=== PATIENT | female | born 1970 | race Caucasian/White ===

== ENCOUNTER 2019-03-06 15:25 | Emergency (ER) | payer BC ==
--- NOTE | 2019-03-06 16:01 | EDM.PDOC ---
ED HPI GENERAL MEDICAL PROBLEM - General Chief Complaint: Gastrointestinal Problem Stated Complaint: LOW ABD AND BACK PAIN Time Seen by Provider: 03/06/19 15:41 Source of Information: Reports: Patient History Limitations: Reports: No Limitations - History of Present Illness INITIAL COMMENTS - FREE TEXT/NARRATIVE: Patient is a 48-year-old female presents ED complaining of periumbilical abdominal pain described as crampy sensation that waxes and wanes in intensity. States been going on for the past month. Of note she has a history of constipation and has been taking this product called Urban Ladder which is a stimulant laxative every 2 days. She's had increased flatulence noted as well. Predominantly symptoms worsen after taking this product. She has been mildly nauseated. There has been no emesis. No dark tarry stools, bloody stools, ingestion of bad/questionable food, recent antibiotic use, or out of country travel. 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 Patient has a history of hypertension and is on lisinopril with HCTZ. She started a probiotic yesterday. She's had her gallbladder removed. She does have a history of endometriosis. She's had no other surgeries other than right knee meniscus repair. She does smoke 1.5 packs per day. Alcohol use seldom. Drug use none. Abdominal Pain Score (Numeric/FACES): 3 - Related Data Allergies Allergy/AdvReac Type Severity Reaction Status Date / Time acetaminophen Allergy Vomiting Verified 03/06/19 15:46 [From Tylenol-Codeine #3] codeine Allergy Vomiting Verified 03/06/19 15:46 [From Tylenol-Codeine #3] morphine Allergy Hives Verified 03/06/19 15:46 Home Meds: Home Meds Lisinopril/Hydrochlorothiazide [Lisinopril-Hctz 20-12.5 mg Tab] 1 tab PO DAILY 03/06/19 [History] Past Medical History Cardiovascular History: Reports: Hypertension Gastrointestinal History: Reports: Cholelithiasis [employer] History: Reports: Endometriosis - Past Surgical History Other Musculoskeletal Surgeries/Procedures:: r knee replacement Social & Family History - Tobacco Use Smoking Status *Q: Current Every Day Smoker Years of Tobacco use: 30 Packs/Tins Daily: 1 - Caffeine Use Caffeine Use: Reports: Coffee, Energy Drinks, Tea - Recreational Drug Use Recreational Drug Use: No ED ROS GENERAL - Review of Systems Review Of Systems: See Below Constitutional: Reports: Decreased Appetite. Denies: Fever, Chills, Malaise, Weakness, Fatigue HEENT: Reports: No Symptoms Respiratory: Reports: No Symptoms Cardiovascular: Reports: No Symptoms GI/Abdominal: Reports: Abdominal Pain, Constipation, Diarrhea, Decreased Appetite, Distension, Flatus, Mucous in Stool. Denies: Anorexia, Black Stool, Bloody Stool, Difficulty Swallowing, Hematemesis, Hematochezia, Melena, Nausea, Stool Incontinence, Vomiting : Reports: No Symptoms Musculoskeletal: Reports: Back Pain (low back pain, chronic) Skin: Reports: No Symptoms Neurological: Reports: No Symptoms ED EXAM, GI/ABD - Physical Exam Exam: See Below Exam Limited By: No Limitations General Appearance: Alert, WD/WN, No Apparent Distress Ears: Hearing Grossly Normal Nose: Normal Inspection Throat/Mouth: Normal Voice, No Airway Compromise Head: Atraumatic, Normocephalic Neck: Normal Inspection, Supple Respiratory/Chest: No Respiratory Distress, Lungs Clear, Normal Breath Sounds, No Accessory Muscle Use, Chest Non-Tender Cardiovascular: Normal Peripheral Pulses, Regular Rate, Rhythm, Systolic Murmur GI/Abdominal Exam: Soft, No Organomegaly, No Distention, Abnormal Bowel Sounds ( hyperactive) Back Exam: Normal Inspection, Full Range of Motion. No: CVA Tenderness (L), CVA Tenderness (R) Extremities: Normal Inspection, Non-Tender, No Pedal Edema Neurological: Alert, Oriented, CN II-XII Intact, Normal Cognition, No Motor/ Sensory Deficits Psychiatric: Normal Affect, Normal Mood Skin Exam: Warm, Dry, Intact, Normal Color, No Rash Course - Vital Signs Last Recorded V/S: Last Vital Signs Temp 97.2 F 03/06/19 15:34 Pulse 65 03/06/19 15:34 Resp 14 03/06/19 15:34 BP 121/63 03/06/19 15:34 Pulse Ox 100 03/06/19 15:34 - Orders/Labs/Meds Orders: Active Orders 24 hr Category Date Time Status Abdomen 2V AP Flat Upright [CR] Stat Exams 03/06/19 15:54 Taken WBC, STOOL [OP] Stat Lab 03/06/19 15:56 Ordered Labs: Laboratory Tests 05/18/19 05/18/19 05/18/19 Range/Units 15:55 15:55 16:05 WBC 11.04 H (3.98-10.04) K/mm3 RBC 4.57 (3.98-5.22) M/mm3 Hgb 13.8 (11.2-15.7) gm/L Hct 41.8 (34.1-44.9) % MCV 91.5 (79.4-94.8) fl MCH 30.2 (25.6-32.2) pg MCHC 33.0 (32.2-35.5) g/dl RDW Std Deviation 47.2 H (36.4-46.3) fL Plt Count 266 (182-369) K/mm3 MPV 10.9 (9.4-12.3) fl Neutrophils % (Manual) 56 (40-60) % Band Neutrophils % 0 (0-10) % Lymphocytes % (Manual) 36 (20-40) % Atypical Lymphs % 0 % Monocytes % (Manual) 2 (2-10) % Eosinophils % (Manual) 5 (0.7-5.8) % Basophils % (Manual) 1 (0.1-1.2) Platelet Estimate Adequate Plt Morphology Comment Normal RBC Morph Comment Normal Sodium (136-145) mEq/L Potassium (3.5-5.1) mEq/L Chloride (98-107) mEq/L Carbon Dioxide (21-32) mEq/L Anion Gap (5-15) BUN (7-18) mg/dL Creatinine (0.55-1.02) mg/dL Est Cr Clr Drug Dosing mL/min Estimated GFR (MDRD) (>60) mL/min BUN/Creatinine Ratio (14-18) Glucose (74-106) mg/dL Calcium (8.5-10.1) mg/dL Total Bilirubin (0.2-1.0) mg/dL AST (15-37) U/L ALT (14-59) U/L Alkaline Phosphatase (46-116) U/L C-Reactive Protein (<1.0) mg/dL Total Protein (6.4-8.2) g/dl Albumin (3.4-5.0) g/dl Globulin gm/dL Albumin/Globulin Ratio (1-2) Lipase (73-393) U/L Urine Color Yellow (Yellow) Urine Appearance Clear (Clear) Urine pH 6.0 (5.0-8.0) Ur Specific [place] 1.010 (1.005-1.030) Urine Protein Negative (Negative) Urine Glucose (UA) Negative (Negative) Urine Ketones Negative (Negative) Urine Occult Blood Negative (Negative) Urine Nitrite Negative (Negative) Urine Bilirubin Negative (Negative) Urine Urobilinogen 0.2 (0.2-1.0) Ur Leukocyte Esterase Negative (Negative) Urine RBC 0-5 (0-5) /hpf Urine WBC Not seen (0-5) /hpf Ur Epithelial Cells Not seen (0-5) /hpf Urine Bacteria Not seen (FEW) /hpf Urine Mucus Not seen (FEW) /hpf Urine HCG, Qual Negative (NEGATIVE) 03/06/19 Range/Units 16:05 WBC (3.98-10.04) K/mm3 RBC (3.98-5.22) M/mm3 Hgb (11.2-15.7) gm/L Hct (34.1-44.9) % MCV (79.4-94.8) fl MCH (25.6-32.2) pg MCHC (32.2-35.5) g/dl RDW Std Deviation (36.4-46.3) fL Plt Count (182-369) K/mm3 MPV (9.4-12.3) fl Neutrophils % (Manual) (40-60) % Band Neutrophils % (0-10) % Lymphocytes % (Manual) (20-40) % Atypical Lymphs % % Monocytes % (Manual) (2-10) % Eosinophils % (Manual) (0.7-5.8) % Basophils % (Manual) (0.1-1.2) Platelet Estimate Plt Morphology Comment RBC Morph Comment Sodium 139 (136-145) mEq/L Potassium 3.9 (3.5-5.1) mEq/L Chloride 100 (98-107) mEq/L Carbon Dioxide 30 (21-32) mEq/L Anion Gap 12.9 (5-15) BUN 14 (7-18) mg/dL Creatinine 0.8 (0.55-1.02) mg/dL Est Cr Clr Drug Dosing 64.19 mL/min Estimated GFR (MDRD) > 60 (>60) mL/min BUN/Creatinine Ratio 17.5 (14-18) Glucose 90 (74-106) mg/dL Calcium 9.5 (8.5-10.1) mg/dL Total Bilirubin 0.4 (0.2-1.0) mg/dL AST 15 (15-37) U/L ALT 18 (14-59) U/L Alkaline Phosphatase 81 (46-116) U/L C-Reactive Protein 0.5 (<1.0) mg/dL Total Protein 7.3 (6.4-8.2) g/dl Albumin 4.0 (3.4-5.0) g/dl Globulin 3.3 gm/dL Albumin/Globulin Ratio 1.2 (1-2) Lipase 124 (73-393) U/L Urine Color (Yellow) Urine Appearance (Clear) Urine pH (5.0-8.0) Ur Specific [place] (1.005-1.030) Urine Protein (Negative) Urine Glucose (UA) (Negative) Urine Ketones (Negative) Urine Occult Blood (Negative) Urine Nitrite (Negative) Urine Bilirubin (Negative) Urine Urobilinogen (0.2-1.0) Ur Leukocyte Esterase (Negative) Urine RBC (0-5) /hpf Urine WBC (0-5) /hpf Ur Epithelial Cells (0-5) /hpf Urine Bacteria (FEW) /hpf Urine Mucus (FEW) /hpf Urine HCG, Qual (NEGATIVE) - Re-Assessments/Exams Free Text/Narrative Re-Assessment/Exam: On examination patient has no discomfort with palpation of her abdomen. Bowel sounds are hyperactive. Suspect cause of her complaint is the excessive use of a stimulant laxative. Patient's been using this product called Accu Hanks every 2 days causing this abdominal cramping with diarrhea. She has a history constipation. No blood within her stool. She denies any other concerning symptoms. Symptoms having gone on for the past month. No IV required. Vital signs are stable. Initial labs and studies will include: CBC, chem 14, CRP, lipase, UA, stool wbc, and also two-view of the abdomen. X-ray of the abdomen reviewed with Dr. Armijo with increased air pattern. No stool pattern abnormalities. No acute findings. Final interpretation is pending. Labs reviewed with no concerning findings. Stool sample was unable to be obtained. I have canceled the stool studies. Discussed labs and x-ray findings with the patient. Again I do suspect the cause of her current complaints is related to the excessive use of the Accu Hanks laxative. Patient was instructed to stop taking this supplement. Eat a balanced meal. Stop smoking. May utilize MiraLAX one capful daily if she experiences any constipation. She was advised to see PCP and discuss obtaining a EGD and colonoscopy. She may use beeno or Gas-X to help with the gas pains. Patient had no further questions or concerns. Return precautions were discussed with the patient. In addition patient also made a comment she has some acid reflux. I discussed the treatment regimen for this. Departure - Departure Time of Disposition: 17:13 Disposition: Home, Self-Care 01 Condition: Good Clinical Impression: Abdominal pain, Gas pain Acid reflux Qualifiers: Esophagitis presence: esophagitis presence not specified Qualified Code(s): K21.9 - Gastro-esophageal reflux disease without esophagitis - Discharge Information Instructions: Indigestion, [id number], Food Choices for Gastroesophageal Reflux Disease, Adult, Constipation, Adult, [id number], Nausea and Vomiting, Adult, [id number], Diarrhea, Adult, [id number] Referrals: Brenda Molina ANIMAL ANATOMIST [Primary Care Provider] - Forms: ED Department Discharge, ED Return to Work/School Form Additional Instructions: Stop the Accupril a laxative. Eat a balanced meal. Push the fluids. If expressing hard stools use MiraLAX one capful every day thereafter. CRP CP to schedule EGD and colonoscopy. May also use Prilosec 20 mg every morning half- hour prior to eating. Read the educational material on diet for patient's with GERD. Please stop smoking. Return to the ED if you develop any new or worsening symptoms.May use beeno or Gas-X to help with the gas pains. - My Orders Last 24 Hours: My Active Orders 03/06/19 15:54 Abdomen 2V AP Flat Upright [CR] Stat 03/06/19 15:56 WBC, STOOL [OP] Stat - Assessment/Plan Last 24 Hours: My Active Orders 03/06/19 15:54 Abdomen 2V AP Flat Upright [CR] Stat 03/06/19 15:56 WBC, STOOL [OP] Stat
--- NOTE | 2019-03-08 07:28 | CR ---
Abdomen: Supine and upright views of the abdomen were obtained. Comparison: No prior abdominal imaging. Gas is seen throughout the colon. Colon does not appear dilated. Air-fluid levels are seen within the right and transverse colon which can be seen normally as well as with diarrhea. Surgical clips are seen from prior cholecystectomy. Small calcification within the left side of the pelvis is seen most likely due to phlebolith. Minimal scoliosis is noted within the spine. No free air is seen. No soft tissue abnormality is seen. Impression: 1. Gas within the colon which does not appear dilated. 2. Air-fluid levels within the right and transverse colon which can be seen normally as well as with diarrhea from gastroenteritis. 3. Other incidental findings. Diagnostic code #3
== END 2019-03-06 17:24 | disposition home or self-care (01) ==
LOC: JD.ED 15:25
DX: K21.9 Gastro-esophageal reflux disease without esophagitis (principal); R14.1 Gas pain; I10 Essential (primary) hypertension; F17.210 Nicotine dependence, cigarettes, uncomplicated; Z88.8 Allergy status to other drugs, medicaments and biological substances; Z88.5 Allergy status to narcotic agent; Z79.899 Other long term (current) drug therapy
CPT/HCPCS: 36415; 74019; 74019-26; 80053; 81001; 81025; 83690; 85007; 85027; 86140; 99283; 99284-25